=== PATIENT | male | born 1980 | race Caucasian/White ===

== ENCOUNTER 2017-12-28 14:29 | Emergency (ER) | payer SELFPAY ==
[~2017-12-28] VITALS: Ht 154.9 cm; Wt 70.0 kg
[2017-12-28 14:39] VITALS: BP 128/93; Ht 154.9 cm; Wt 70.0 kg
== END 2017-12-28 18:07 | disposition home or self-care (01) ==
LOC: ED 14:29
DX: S46.912A Strain of unspecified muscle, fascia and tendon at shoulder and upper arm level, left arm, initial encounter (principal); S16.1XXA Strain of muscle, fascia and tendon at neck level, initial encounter; S39.012A Strain of muscle, fascia and tendon of lower back, initial encounter; V49.9XXA Car occupant (driver) (passenger) injured in unspecified traffic accident, initial encounter; Y93.79 Activity, other specified sports and athletics; Y92.89 Other specified places as the place of occurrence of the external cause; Y99.8 Other external cause status
CPT/HCPCS: J1885